=== PATIENT | male | born 2000 | race Caucasian/White ===

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

== ENCOUNTER 2021-12-01 19:48 | Emergency (ER) | payer OTHER ==
[~2021-12-01] VITALS: Ht 185.4 cm; Wt 81.8 kg
[2021-12-01 20:24] VITALS: TEMP 98.4
[2021-12-01 22:05] VITALS: BP 116/66; PULSE 46
== END 2021-12-01 22:06 | disposition home or self-care (01) ==
LOC: COL.ER
DX: S63.614A Unspecified sprain of right ring finger, initial encounter (principal); W21.05XA Struck by basketball, initial encounter; Y93.67 Activity, basketball